=== PATIENT | female | born 1965 | race Caucasian/White ===

== ENCOUNTER 2024-04-13 09:28 | Day surgery (SDC) | payer OTHER ==
[~2024-04-13] VITALS: Ht 162.6 cm; Wt 77.1 kg
[2024-04-13] MEDS ORDERED: fentaNYL citrate 0.05 MG/ML VIAL ONE (10:55)
[2024-04-13] MEDS: fentaNYL citrate 0.05 MG/ML VIAL IVP ONE (11:23)
[2024-04-13] MEDS: LIDOCAINE 2% 100 MG/5 ML UJET TP ONE ×2 (11:33→11:45)
== END 2024-04-13 12:30 | disposition home or self-care (01) ==
LOC: MDS 09:28 → MMU 09:32 → MDS 12:30
PROVIDERS: ATTEND Internal Medicine Gastroenterology
DX: R19.5 Other fecal abnormalities (principal); D12.7 Benign neoplasm of rectosigmoid junction; D12.5 Benign neoplasm of sigmoid colon; K64.9 Unspecified hemorrhoids; I10 Essential (primary) hypertension; E03.9 Hypothyroidism, unspecified; Z79.890 Hormone replacement therapy; Z79.899 Other long term (current) drug therapy; Z98.890 Other specified postprocedural states
CPT/HCPCS: 45385; J3010